=== PATIENT | female | born 1985 | race Caucasian/White ===

== ENCOUNTER 2017-07-01 13:32 | Inpatient (IN) ==
[2017-07-10] MEDS ORDERED: OXYTOCIN DRIP 30 UNIT/500 ML ML IV PRN (06:12)
[2017-07-10] MEDS ORDERED: LIDOCAINE 1% (10mg/ml) 2mL INJ PF SDV ID PRN (06:12)
[2017-07-10] MEDS ORDERED: CALCIUM CARBONATE Chewable 500mg TABLET PO PRN ×2 (06:12→14:32)
[2017-07-10] MEDS ORDERED: MAG-AL + SIM ORAL LIQUID 30ml PO PRN ×2 (06:12→14:32)
[2017-07-10] MEDS ORDERED: D5LR 1,000 ML IV PRN (06:12)
[2017-07-10] MEDS ORDERED: LR 1,000 ML IV PRN (06:12)
[2017-07-10] MEDS ORDERED: CARBOPROST 250 MCG/ML INJECTION IM PRN (06:12)
[2017-07-10] MEDS ORDERED: ACETAMINOPHEN 500 MG TABLET PO PRN ×2 (06:12→14:32)
[2017-07-10] MEDS ORDERED: METHYLERGONOVINE 0.2 MG/ML INJECTION IM PRN (06:12)
[2017-07-10 07:26] VITALS: BMI 36.1
[2017-07-10] MEDS ORDERED: BUTORPHANOL 2 MG/ML INJECTION IVP ONE (12:41)
[2017-07-10] MEDS ORDERED: HYDROCORTISONE 2.5% CREAM 30gm RECTALLY PRN (14:32)
[2017-07-10] MEDS ORDERED: DiphenhydrAMINE 25 MG CAPSULE PO PRN (14:32)
[2017-07-10] MEDS ORDERED: SALINE FLUSH 10ml SYRINGE IV PRN (14:32)
[2017-07-10] MEDS ORDERED: OXYTOCIN DRIP 30 UNIT/500 ML ML IV SCH ×2 (14:45)
[2017-07-10] MEDS: HYDROCODONE/APAP 5mg/325mg TABLET PO PRN ×3 (14:45→23:59)
[2017-07-10] MEDS: IBUPROFEN 800 MG TABLET PO PRN ×2 (14:45→22:00)
[2017-07-11] MEDS ORDERED: DOCUSATE CALCIUM 240 MG CAPSULE PO SCH (09:00)
--- NOTE | 2017-07-11 09:17 | Labor and Delivery Note ---
DATE OF DELIVERY: 07/10/2017 DELIVERY NOTE The patient is a 31-year-old G4, P3 who presented at 39 weeks 0 days for Pitocin induction secondary to elevated blood pressures in . She came in and was started on Pitocin and tolerated it quite well. Amniotomy was performed and clear fluid was noted. They were having difficulty keeping the baby on the monitor and picking up contractions so an IUPC and a direct monitor were placed, after which time they were able to keep both heart tones and contractions monitored much better. She progressed through labor otherwise relatively uneventfully. She went from 4 to 7 cm, then stayed at 7 cm for several checks and then went from 7 cm to over the matter of a few minutes, at which time I was paged and did come running to the unit. At my arrival on the unit baby had delivered about one minute prior to my arrival and was delivered safely by the nursing staff. Cord was not yet clamped and placenta was not yet delivered at the time that I arrived. I did go ahead and gown up, clamped the cord. We had dad cut the cord. Placenta delivered uneventfully and on exam did appear to be intact with a three-vessel cord. Per the nursing report of the delivery, the patient was vertex and straight OA at the time of delivery and there was no nuchal cord. The mouth and the nose were bulb suctioned at the time of delivery of the head. Attention was then turned to examination of the cervix and the vaginal sidewalls and perineum. The patient was unblocked, so very carefully I did take a look to find an intact cervix with minimal vaginal bleeding at that time. She had a very small right periurethral tear and a slightly larger but still nonbleeding fairly small left periurethral skin tear, neither of which were repaired. She had a first-degree perineal skin tear, also not bleeding, approximately 1 cm in length and when left in its anatomic position did reapproximate completely, so was also left unrepaired. There were no clots remaining in the uterus at that time and patient and the baby are both doing very well at the time of this dictation. EBL was approximately 250 ml. Baby was a male by the name of "Ronald Villafuerte." He weighed 3419 grams or 7 pounds 8.6 ounces. He was 19-1/2 inches long. Apgars were 8//9. MTDD
[2017-07-11] MEDS: IBUPROFEN 800 MG TABLET PO PRN ×2 (09:46→18:04)
[2017-07-11 09:56] VITALS: BP 123/81; PULSE 106; RESP 16; TEMP 98.7; O2SAT 97
[2017-07-11] MEDS: HYDROCODONE/APAP 5mg/325mg TABLET PO PRN (12:55)
--- NOTE | 2017-07-11 14:30 | Discharge Summary ---
OB Discharge Summary Reason for Hospitalization:: JACI @39-0 Date: 07/11/17 Procedures: Procedures Other artificial rupture of membranes (01/01/14) Other manually assisted delivery (01/01/14) Procedures: pitocin for induction Labor Procedures: IUPC/IUPM, direct monitoring, AROM Delivery: Spontaneous Vaginal - Final Diagnosis gestational HTN Consultations: 07/10/17 14:32 Nurse Consult [CONS] Routine Comment: Instructions: Discharge Instructions: Maternal Child Mother Dismissal Instructions Given (diet, activity, and medications, follow-up) Home Medications: Home Medications Medication Instructions Recorded Confirmed Type Vit No.130/Iron/Folic DAILY #0 01/01/14 History [ Tablet] Discharge Plan - Discharge Disposition Discharge Date: 07/11/17 Disposition: 01 Discharged Home, Self-Care *Condition: Stable Reason For Visit (Visit label in EMR): - Discharge Medications *Discharge Medications: New Hydrocodone/APAP 5/325 [[place] 5/325] 1 tab PO Q4H PRN #30 tab PRN Reason: Pain Ibuprofen [Motrin] 800 mg PO Q8H PRN #60 tab PRN Reason: Pain Continue Vit No.130/Iron/Folic [ Tablet] DAILY #0 Discontinued Ibuprofen 800 mg PO Q8H PRN #30 tab PRN Reason: PAIN Sulfamethoxazole/Trimethoprim [Bactrim Ds Tablet] 1 tab PO BID 3 Days #6 tab Fluconazole [Diflucan] 1 tab PO O 1 Days #1 tab - Discharge Packet/Instructions *Diet: As tolerated *Activity: See M/C discharge instructions. *Pain Management/Treatment: See M/C discharge instructions. *Wound Care: See M/C discharge instructions. *Expected Signs/Symptoms: See M/C discharge instructions. *Notify Physician if: See M/C discharge instructions. *During Business Hours Contact: Dr. Andersen at [phone] *After Business Hours Contact: Dr. Andersen at [phone] *Pending Lab/Results: No Pending Lab - Referrals/Follow Up *Referrals/Follow Up: Lady Andersen MD [Family Provider] - - Patient Handouts Patient Handouts: [facility] Vaginal Delivery - Dismissal Complete Discharge Instructions are:: Complete
== END 2017-07-11 18:12 | disposition home or self-care (01) | DRG 775 ==
LOC: MC 07-10 06:10
PROVIDERS: ADMIT Family Medicine; ATTEND Family Medicine